=== PATIENT | male | born 1985 | race Caucasian/White ===

== ENCOUNTER → 2023-02-20 | Outpatient (CLI) | payer OTHER | END | disposition home or self-care (01) | LOC: LAB 09:20 → LAB SHORT 09:20 | DX: Z76.89 Persons encountering health services in other specified circumstances (principal) ==

== ENCOUNTER 2023-08-11 15:57 | Emergency (ER) | payer OTHER ==
[~2023-08-11] VITALS: Ht 190.5 cm; Wt 122.5 kg
[2023-08-11 16:33] VITALS: BP 143/87
[2023-08-11] MEDS ORDERED: Divalproex Sod500 MG PO (16:36)
[2023-08-11] MEDS ORDERED: SUBVENITE PO (16:36)
== END 2023-08-11 17:46 | disposition home or self-care (01) ==
LOC: ER 15:57
DX: S61.412A Laceration without foreign body of left hand, initial encounter (principal); W01.190A Fall on same level from slipping, tripping and stumbling with subsequent striking against furniture, initial encounter
CPT/HCPCS: 12001; 99282-25; A9270